=== PATIENT | female | born 1955 | race Caucasian/White ===

== ENCOUNTER 2020-05-30 11:01 | Outpatient (CLI) | payer MEDICARE, SELFPAY | END 2020-05-30 11:02 | disposition home or self-care (01) | LOC: ANHCOVIDVC 11:02 | PROVIDERS: PCP Internal Medicine Hematology & Oncology | DX: Z23 Encounter for immunization (principal) | CPT/HCPCS: 0001A; 91300 ==

== ENCOUNTER → 2020-06-14 02:30 | Outpatient (CLI) | payer MEDICARE, SELFPAY ==
[2020-06-14 20:22] LABS: SARS-CoV-2 RNA PCR Negative
== END ==
PROVIDERS: PCP Internal Medicine Hematology & Oncology; Visit Provider Surgery
DX: Z01.812 Encounter for preprocedural laboratory examination (principal); Z20.822 Contact with and (suspected) exposure to COVID-19
CPT/HCPCS: C9803; U0003; U0005

== ENCOUNTER 2020-06-18 00:51 | Day surgery (SDC) | payer MEDICARE, SELFPAY ==
[2020-06-12 15:32] VITALS: BMI 37.1
--- NOTE | 2020-06-18 11:28 | PM.HPGS ---
History of Present Illness History of Present Illness Consent: Risks, benefits, and alternatives of removal of a port have been discussed and questions answered. Patient agrees to proceed with procedure. Chief complaint: follicular lymphoma Narrative: Leelee Ulrich is a 64 year old female with a history of stage IIIA follicular lymphoma which was 1st noted in January of 2018. She received treatment with Rituxan for 6 months and has been in remission. She recently was seen at Dr. Mirna irvin. Oncology office and after thorough discussion and no further lymphadenopathy is been approved for her to have her Port-A-Cath removed as no further treatment is contemplated at this time. Review of Systems Constitutional: Constitutional: Reports no additional constitutional complaints, Reports fatigue and Denies malaise Eyes: Eyes: Denies change in vision and Denies loss of vision ENT: Reports Normal hearing present, Denies change in voice, Denies dizziness, Denies hoarseness and Denies sore throat Cardiovascular: Cardiovascular: Denies chest pain, Denies leg edema and Denies dyspnea Respiratory: Respiratory: Denies cough, Denies dyspnea and Denies wheezing Comments: History of previous smoker. Has now quit. Gastrointestinal: Gastrointestinal: Denies hematochezia, Denies change in bowel habits and Denies heartburn Genitourinary: Genitourinary: Denies urinary frequency and Denies urinary incontinence Neurologic: Reports Normal hearing present, Denies confusion, Denies dizziness, Denies loss of vision, Denies memory loss and Denies seizure-like activity Psychiatric: Psychiatric: Denies confusion, Denies depression and Denies memory loss Endocrine: Endocrine: Denies cold intolerance and Reports fatigue Hematologic/Lymphatic: Hematologic/Lymphatic: Denies easy bleeding and Denies easy bruising Comments: History of follicular lymphoma 1st discovered January 2018 with enlarged lymph nodes of the head neck. Allergic/Immunologic: Allergic/Immunologic: Denies wheezing PMFSH Past Medical History Medical History (Updated 06/18/20 @ 11:32 by Kermit Dial MD) Follicular lymphoma grade 3a (~2018) Port-A-Cath in place (Unknown) Social History Social History Smoking packs per day: 1 Smoking cigarettes per day: 20.0 Years smoked: 20 Smoking pack-years: 20.00 Smoking status: Former smoker Tobacco type: cigarettes Additional smoking assessment comments: QUIT 2018 Alcohol intake: never Substance use: never Substance use type: does not use Living arrangements: alone Spiritual care concerns: Yes (NO BLOOD PRODUCTS) Meds Home Medications and Allergies Home Medications Medication Instructions Recorded Confirmed Type No Home Medications 06/12/20 06/18/20 History Allergies Allergy/AdvReac Type Severity Reaction Status Date / Time No Known Allergies Allergy Unverified 06/18/20 13:44 Exam Const: General: cooperative, healthy appearing, no acute distress, well developed and alert; No confusion Nutritional Appearance: well nourished Orientation/consciousness: patient oriented x3 and No confusion Limitations: no limitations HENMT: Head: normal to inspection, normocephalic and atraumatic Ears: hearing grossly normal bilaterally General nose exam: Normal external nose present Face and sinus: no edema Mouth: Yes Normal oral and palatal mucosa present and Yes lip normal Throat: posterior oropharynx normal Eyes: General: appearance normal, both eyes and all related structures Sclera: sclerae normal Pupils: Equal, round and reactive pupils present EOM: EOMs intact bilaterally Neck: Neck: normal visual inspection, no lymphadenopathy, trachea midline and supple Chest: Other: There is a small scar on the anterior right chest with underlying port palpable. Resp: Effort & Inspection: normal respiratory effort and able to speak in comp
[2020-06-18 13:15] VITALS: BP 142/97; PULSE 60; RESP 16; TEMP 36.6; O2SAT 100
[2020-06-18 13:29] VITALS: BMI 36.9
--- NOTE | 2020-06-18 13:53 | WPDHPUPDATE1 ---
History and Physical Update Update Date/Time: 06/18/20 13:53 History and Physical has been reviewed, including an updated exam of the patient. There are NO changes in the patient's condition. Risks, benefits, and alternatives removal of Port-A-Cath have been discussed and questions answered. Patient agrees to proceed with procedure.
[2020-06-18 14:28] VITALS: BP 142/86; PULSE 60; RESP 20; O2SAT 97
[2020-06-18 14:42] VITALS: BP 184/89; PULSE 72; RESP 20; O2SAT 99
[2020-06-18 14:52] VITALS: BP 117/65; PULSE 80; RESP 20; O2SAT 99
[2020-06-18 15:00] VITALS: BP 149/77; O2SAT 99
--- NOTE | 2020-06-18 15:07 | P.OP_ITS ---
Procedure Note - Detailed Date of procedure: 06/19/20 Pre-op diagnosis: follicular lymphoma Indwelling Port-A-Cath Post-op diagnosis: same Procedure performed: Removal of Port-A-Cath Description of procedure: Prior to the procedure the patient was seen in the holding area and the area of proposed surgery was marked. All questions were answered and the patient wished to proceed with removal of the Port-A-Cath. The patient was brought to the operating room and placed supine. The entire right neck, chest, and shoulder were prepped with chlorhexidine. The area was draped off. Time-out was performed confirming patient and site of surgery. Following this a 15 blade knife was used to make incision directly on the scar from the previous port placement. This was done after infiltrating local anesthetic into the area of and inferior to the scar and into the area of the pocket containing the port to some degree using 2% xylocaine with epinephrine. Following this we carefully dissected down to the junction of the port and catheter. Bovie cautery with needle-tip was used to carefully incise the capsule around the port and free up the scar tissue around the junction of the port and catheter. Two black silk sutures that were holding the port to the underlying fascia were carefully excised with a 15 blade knife and mosquito hemostats. Following this the port was brought up and out of the pocket. Then watching the patient's respirations I carefully removed the catheter in one smooth pull while applying pressure in the lower right neck area at the catheter exit site as the patient was breathing out. Pressure was held for 1 minute. I used Bovie cautery on some the subcutaneous tissues as we waited for good clotting. Again hemostasis was checked in the wound using Bovie cautery for superficial hemostasis in the subcutaneous tissues. Following this closure was obtained with 2 layers. I used buried subcutaneous sutures of 3-0 Vicryl in the subcutaneous layer followed by a running subcuticular closure of 4-0 Monocryl on the skin. Patient tolerated the procedure well. Estimated blood loss was 3 cc Sponge, needle, and instrument counts were correct at the end the procedure and patient was taken to the outpatient recovery area in good condition. Anesthesia: local ( 2% xylocaine with epinephrine) Surgeon: Kermit Dial MD Manager Division: none Drains: No Packing: No Pathology: none sent Complications: No immediate complications Condition: stable Disposition: other ( outpatient recovery area) Findings: unremarkable port and catheter that were intact.
[2020-06-18 15:10] VITALS: BP 150/80; PULSE 66; RESP 14; O2SAT 99
== END 2020-06-18 15:30 | disposition home or self-care (01) ==
PROVIDERS: PCP Family Medicine; Visit Provider Surgery
PROC: (CPT 36589; principal; 2020-06-18 15:00)
DX: Z45.2 Encounter for adjustment and management of vascular access device (principal); Z85.72 Personal history of non-Hodgkin lymphomas; Z92.21 Personal history of antineoplastic chemotherapy; Z87.891 Personal history of nicotine dependence
CPT/HCPCS: 36590

== ENCOUNTER 2020-06-20 10:59 | Outpatient (CLI) | payer MEDICARE, SELFPAY | END 2020-06-20 11:00 | disposition home or self-care (01) | LOC: ANHCOVIDVC 10:59 | PROVIDERS: PCP Family Medicine | DX: Z23 Encounter for immunization (principal) | CPT/HCPCS: 0002A; 91300 ==

== ENCOUNTER 2022-12-20 11:45 | Outpatient (CLI) | payer MEDICARE, SELFPAY ==
[2022-12-20 11:59] LABS: Basophils Percent Auto 1.1 % (0.2-1.2); Eosinophils Percent Auto 1.5 % (0-4.4); Hematocrit 40.3 % (37.0-47.0); Hemoglobin 13.9 g/dL (12.0-15.0); Immature Granulocyte Absolute 0.01 K/mm3 (0.00-0.031); Immature Granulocyte Percent A 0.4 % (0-0.5); Lymphocytes Absolute Auto 0.83 K/mm3 (0.9-3.2); Lymphocytes Percent Auto 30.2 % (18.3-44.2); Mean Corpuscular HGB Conc 34.5 g/dl (32-36); Mean Corpuscular Hemoglobin 31.7 pg (26-34); Mean Corpuscular Volume 91.8 fl (80-100); Mean Platelet Volume 10.3 fl (7.4-10.4); Monocytes Absolute Auto 0.1 K/mm3 (0.1-0.6); Monocytes Percent Auto 4.7 % (2.6-8.5); Neutrophils Absolute Auto 1.7 K/mm3 (1.3-6.7); Neutrophils Percent Auto 62.1 % (45.5-73.1); Platelet Count Result 148 k/mm3 (150-375); Red Blood Count 4.39 M/mm3 (4.2-5.4); Red Cell Distribution Width 11.6 % (11.5-14.5); White Blood Count 2.8 K/mm3 (4.5-10.0)
[2022-12-20 13:25] LABS: Alanine Aminotransferase 21 U/L (6-35); Albumin Level 4.3 g/dL (3.5-5.1); Alkaline Phosphatase 42 U/L (38-126); Anion Gap 6 mmol/L (8-16); Aspartate Amino Transferase 23 U/L (14-36); Bilirubin,Total 0.7 mg/dL (0.2-1.3); Blood Urea Nitrogen 14 mg/dL (7-17); Carbon Dioxide 25 mmol/L (22-30); Chloride 107 mmol/L (98-107); Estimated Glomerular Filt Rate > 60; Glucose 108 mg/dL (65-110); Lactate Dehydrogenase 213 U/L (120-246); Potassium 3.9 mmol/L (3.4-5.0); Sodium 138 mmol/L (137-145)
== END 2022-12-20 11:46 | disposition home or self-care (01) ==
LOC: ANHLAB 11:47
PROVIDERS: PCP Family Medicine; Visit Provider Internal Medicine Hematology & Oncology
DX: C82.98 Follicular lymphoma, unspecified, lymph nodes of multiple sites (principal)
CPT/HCPCS: 36415; 80053; 83615; 85025

== ENCOUNTER 2024-08-22 11:18 | Outpatient (CLI) | payer MEDICARE, SELFPAY ==
--- OUTSIDE RECORDS SUMMARY | 2024-08-22 11:22 | XMS_ITS | Clinical Summary ---
Author Organization [facility] Address [address] [place] [address] Care Team Providers Care Lamp Mechanic Name Role Phone Rober Farnsworth MD Primary Care Provider Allergies No known active allergies Medications No known medications Active Problems Problem Noted Date Diagnosed Date Follicular lymphoma 01/25/2018 Resolved Problems Problem Noted Date Diagnosed Date Resolved Date Lymphadenopathy 01/11/2018 01/25/2018 Encounters Date Type Department Care Team Description 08/08/2024 External Device Data STL ABSTRACTION Provider, Abstract 08/07/2024 External Device Data STL ABSTRACTION Provider, Abstract 06/19/2024 External Device Data STL ABSTRACTION Provider, Abstract from Last 3 Months Family History Medical History Relation Name Comments Healthy Brother Diabetes Father Heart Disease Father Heart Failure Father Cancer Mother Relation Name Status Comments Brother Alive Father Mother Social History Tobacco Use Types Packs/Day Years Used Date Smoking Tobacco: Former Cigarettes 0.5 20 1 - 01/18/2018 Smokeless Tobacco: Never Tobacco Cessation:Counseling Given: Not Answered Comments:started smoking in -86 quit for 15 yrs now current moker Alcohol Use Standard Drinks/Week Comments Yes 0 (1 standard drink = 0.6 oz pur e alcohol) Comments No Sex and Gender Information Value Date Recorded Sex Assigned at Female 02/24/2024 11:35 AM CORPORATE TRAVEL MANAGER Legal Sex Female 10:40 AM CDT Gender Identity Female 02/24/2024 11:35 AM CORPORATE TRAVEL MANAGER Sexual Orientation Straight 02/24/2024 11 :35 AM CORPORATE TRAVEL MANAGER Last Filed Vital Signs Vital Sign Reading Time Taken Comments Blood Pressure 113/63 08/29/2023 11:34 AM CDT Pulse 67 08/29/2023 11:34 AM CDT Temperature 36.1 C (96.9 F) 08/29/2023 11:34 AM CDT Respiratory Rate 14 08/29/2023 11:34 AM CDT Oxygen Saturation 98% 08/29/2023 11:34 AM CDT Inhaled Oxygen Concentration - - Weight 85.9 kg (189 lb 6.4 oz) 08/29/2023 11:34 AM CDT Height 152.4 cm (5') 08/24/2021 9:58 AM CDT Body Mass Index 36.99 08/24/2021 9:58 AM CDT Plan of Treatment Upcoming Encounters Date Type Department Care Team (Late st Contact Info) Description 08/29/2024 10:00 AM CDT Office Visit [facility] Oncology and Hematology - [place] [address] [facility] [address] [place] [address] Joe Snow MD [address] [facility] [address] [place] [address] Health Maintenance Due Date Last Done Comments Pre-Diabetes and Diabetes Screening 1955 DTAP/TDAP/TD VACCINES (1 - Tdap) 1972 PNEUMOCOCCAL VACCINE 50+ YEA RS (1 of 2 - PCV) 1972 ZOSTER VACCINE (1 of 2) 1972 COLORECTAL SCREENING 1998 Colorectal Cancer Screening 1998 FIT-DNA Q 3 years 1998 FIT/FOBT Q 1 year 1998 Flex Sig/CT Colonography Q 5 years 1998 RSV VACCINE (60+ or ) (1 - Risk 60-74 years 1-dose series) 2013 BREAST CANCER SCREENING 11/07/2018 11/07/2017, 07/31 OSTEOPOROSIS SCREENING 08/01/2019 07/31/2014 INFLUENZA VACCINE (#1) 2023 Medicare Advantage ([place]) Prev entative Visit/Annual Wellness Visit 03/21/2024 Insurance [employer] CHOICE PPO MCR Care Teams Lamp Mechanic Relationship Specialty Start Date End Date Rober Farnsworth MD [address] [place] [address] PCP - General Family Practice 01/11/18
[2024-08-22 11:33] LABS: Basophils Percent Auto 1.4 % (0.2-1.2); Hematocrit 39.2 % (37.0-47.0); Hemoglobin 13.2 g/dL (12.0-15.0); Immature Granulocyte Absolute 0.01 K/mm3 (0.00-0.031); Immature Granulocyte Percent A 0.3 % (0-0.5); Lymphocytes Absolute Auto 1.11 K/mm3 (0.9-3.2); Lymphocytes Percent Auto 37.6 % (18.3-44.2); Mean Corpuscular HGB Conc 33.7 g/dl (32-36); Mean Corpuscular Hemoglobin 31.4 pg (26-34); Mean Corpuscular Volume 93.1 fl (80-100); Mean Platelet Volume 10.2 fl (7.4-10.4); Monocytes Absolute Auto 0.2 K/mm3 (0.1-0.6); Monocytes Percent Auto 6.1 % (2.6-8.5); Neutrophils Absolute Auto 1.6 K/mm3 (1.3-6.7); Neutrophils Percent Auto 53.6 % (45.5-73.1); Platelet Count Result 137 k/mm3 (150-375); Red Blood Count 4.21 M/mm3 (4.2-5.4)
[2024-08-22 12:05] LABS: Alanine Aminotransferase 19 U/L (6-35); Albumin Level 4.1 g/dL (3.5-5.1); Alkaline Phosphatase 38 U/L (38-126); Anion Gap 6 mmol/L (4-12); Aspartate Amino Transferase 29 U/L (14-36); Bilirubin,Total 0.5 mg/dL (0.2-1.3); Blood Urea Nitrogen 16 mg/dL (7-17); Calcium 9.3 mg/dL (8.4-10.2); Carbon Dioxide 27 mmol/L (22-30); Chloride 106 mmol/L (98-107); Estimated Glomerular Filt Rate > 60; Glucose 94 mg/dL (65-110); Potassium 4.3 mmol/L (3.4-5.0); Sodium 139 mmol/L (137-145); Total Protein 6.7 g/dL (6.3-8.2)
== END 2024-08-22 11:19 | disposition home or self-care (01) ==
PROVIDERS: PCP Family Medicine; Visit Provider Internal Medicine Hematology & Oncology
DX: C82.98 Follicular lymphoma, unspecified, lymph nodes of multiple sites (principal)
CPT/HCPCS: 36415; 80053; 85025

== ENCOUNTER 2024-10-05 10:14 | Outpatient (CLI) | payer MEDICARE, SELFPAY ==
--- OUTSIDE RECORDS SUMMARY | 2024-10-05 10:18 | XMS_ITS | Clinical Summary ---
Author Organization [facility] Address [address] [place] [address] Care Team Providers Care Senior Publications Specialist Name Role Phone Rober Farnsworth MD Primary Care Provider Allergies No known active allergies Medications No known medications Active Problems Problem Noted Date Diagnosed Date Follicular lymphoma 01/25/2018 Resolved Problems Problem Noted Date Diagnosed Date Resolved Date Lymphadenopathy 01/11/2018 01/25/2018 Encounters Date Type Department Care Team Description 10/02/2024 External Device Data STL ABSTRACTION Provider, Abstract 09/11/2024 External Device Data STL ABSTRACTION Provider, Abstract 08/29/2024 10:00 AM CDT Office Visit [facility] Oncology and Hematology - [place] [address] [place] [id number] Joe Snow MD Follicular lymphoma of lymph nodes of multiple regions, unspecified follicular lymphoma type (CMS/HCC) (Primary Dx) 08/22/2024 Orders Only [facility] Oncology and Hematology [facility] [address] [place] [address] Joe Snow MD 08/08/2024 External Device Data STL ABSTRACTION Provider, [...] Sex Assigned at Female 02/24/2024 11:35 AM OPTICAL WORKER Legal Sex Female 10:40 AM CDT Gender Identity Female 02/24/2024 11:35 AM OPTICAL WORKER Sexual Orientation Straight 02/24/2024 11 :35 AM OPTICAL WORKER Last Filed Vital Signs Vital Sign Reading Time Taken Comments Blood Pressure 102/73 08/29/2024 9:47 AM CDT Pulse 73 08/29/2024 9:47 AM CDT Temperature 36.2 C (97.2 F) 08/29/2024 9:47 AM CDT Respiratory Rate 15 08/29/2024 9:47 AM CDT Oxygen Saturation 96% 08/29/2024 9:47 AM CDT Inhaled Oxygen Concentration - - Weight 86.7 kg (191 lb 3.2 oz) 08/29/2024 9:47 A M CDT Height 152.4 cm (5') 08/24/2021 9:58 AM CDT Body Mass Index 37.34 08/24/2021 9:58 AM CDT Plan of Treatment Upcoming Encounters Date Type Department Care Team (Late st Contact Info) Description 08/30/2025 10:00 AM CDT Office Visit [facility] Oncology and Hematology - [place] [address] [facility] [address] [place] [address] Joe Snow MD [address] [facility] [address] [place] [address] Health Maintenance Due Date Last Done Comments Pre-Diabetes and Diabetes Screening 1955 DTAP/TDAP/TD VACCINES (1 - Tdap) 1972 PNEUMOCOCCAL VACCINE 50+ YEA RS (1 of 2 - PCV) 1972 ZOSTER VACCINE (1 of 2) 1972 COLORECTAL SCREENING 1998 Colorectal Cancer Screening 1998 FIT-DNA Q 3 years 1998 FIT/FOBT Q 1 year 1998 Flex Sig/CT Colonography Q 5 years 1998 BREAST CANCER SCREENING 11/07/2018 11/07/2017, 07/31 OSTEOPOROSIS SCREENING 08/01/2019 07/31/2014 INFLUENZA VACCINE (#1) 2024 RSV VACCINE (60+ or ) (1 - 1-dose 75+ series) 2028 Procedures Procedure Name Priority Date/Time Associated Diagnosis Comments COMPREHENSIVE METABOLIC PANEL Routine 08/22/2024 3:31 PM CDT from Last 3 Months Results * COMPREHENSIVE METABOLIC PANEL (08/22/2024 3:31 PM CDT) Blood us Joe Snow MD CHEMISTRY ORDERABLES Final Resu lt from Last 3 Months Insurance [employer] PPO MCR Care Teams Senior Publications Specialist Relationship Specialty Start Date End Date Rober Farnsworth MD [address] [place] [address] PCP - General Family Practice 01/11/18
[2024-10-05 11:19] LABS: Cholesterol 218 mg/dL (0-200); HDL Direct 70 mg/dL; Triglycerides 100 mg/dL (<150)
[2024-10-05 11:24] LABS: Hemoglobin A1C 5.1 % (<5.7)
[2024-10-05 12:14] LABS: Vitamin B12 228.0 pg/mL (239-931)
[2024-10-05 12:30] LABS: Thyroid Stimulating Hormone Reflex 5.300 uIU/mL (0.465-4.68)
[2024-10-05 13:43] LABS: Free T4 Free Thyroxine Reflex 1.11 ng/dL (0.78-2.19)
[2024-10-05 14:52] LABS: Total Triiodothyronine (T3) 1.09 NG/ML (0.82-1.58)
== END 2024-10-05 10:15 | disposition home or self-care (01) ==
LOC: ANHLAB 10:15
PROVIDERS: PCP Family Medicine; Visit Provider Family Medicine
DX: E53.8 Deficiency of other specified B group vitamins (principal); E78.5 Hyperlipidemia, unspecified; D61.818 Other pancytopenia; E55.9 Vitamin D deficiency, unspecified; R73.9 Hyperglycemia, unspecified
CPT/HCPCS: 36415; 80061; 82306; 82607; 83036; 84439; 84443; 84480

== ENCOUNTER 2024-10-10 12:19 | Outpatient (CLI) | payer MEDICARE, SELFPAY ==
--- NOTE | ~2024-10-10 | CT_ITS ---
EXAMINATION: CT lung screening DATE: 10/10/2024 12:31 INDICATION: F17.210 - Nicotine dependence, cigarettes, uncomplicated TECHNIQUE: Computed tomography (CT) of the chest was performed without intravenous contrast. Addition al 3D reconstructions utilizing coronal maximum intensity projection (MIP) were performed. Iterative reconstruction technique was employed. The dose-length product was 144.95 mGy-cm. COMPARISON: 08/03/2018 FINDINGS: Mild discoid atelectasis in the lingula and at the junction of the right upper and middle lobes. No i nterval change in a couple 3 mm and 2 mm nodule in the left upper lobe. Small calcified right upper l obe nodule consistent with old granulomatous disease. No pneumonia, pulmonary edema or pleural effusi on. Small fat-containing Bochdalek hernia along the posterior left hemidiaphragm. Heart size is camilla l. No pericardial effusion. Thoracic aorta is normal in caliber. No pathologically enlarged thoracic lymphadenopathy. Visualized upper abdomen is unremarkable. Moderate to severe thoracic spondylosis. IMPRESSION: 1. . Lung-RADS category 2: Benign appearance or behavior. Continue annual screening with noncontrast low-dose chest CT in 12 months. Reviewed, dictated and finalized at location A. IMPRESSION: 1. . Lung-RADS category 2: Benign appearance or behavior. Continue annual scree marla with noncontrast low-dose chest CT in 12 months.
== END 2024-10-10 12:20 | disposition home or self-care (01) ==
LOC: MICIMG 12:19
PROVIDERS: PCP Family Medicine; Visit Provider Family Medicine
DX: Z12.2 Encounter for screening for malignant neoplasm of respiratory organs (principal); Z87.891 Personal history of nicotine dependence
CPT/HCPCS: 71271

== ENCOUNTER 2024-10-22 12:05 | Outpatient (CLI) | payer MEDICARE, SELFPAY ==
--- NOTE | ~2024-10-22 | DEXA_ITS ---
Bone Density Report Name: AUGIE RICCI Age: 69 Sex: Female Ethnicity: White Date of : 1955 Indication: postmenopausal; screening for osteoporosis; cancer; seizure disorder; Referring Provider: DREW SPARKS Study: Bone densitometry was performed. Exam Date: October 22, 2024 Accession number: [id number] Bone Density: Region BMD T-score Z-score Classification AP Spine(L1-L4) 1.044 0.0 2.1 Normal Femoral Neck (Left) 0.588 -2.3 -0.5 Osteopenia Total Hip (Left) 0.901 -0.3 1.2 Normal Femoral Neck (Right) 0.691 -1.4 0.4 Osteopenia Total Hip (Right) 0.904 -0.3 1.2 Normal Total Hip Mean 0.902 -0.3 1.2 Normal World Health Organization criteria for BMD impression classify patients as: Normal (T-score at or above -1.0), Osteopenia (T-score between -1.0 and -2.5), or Osteoporosis (T-score at or below -2.5). 10-year Fracture Risk(1): Major Osteoporotic Fracture 12% Hip Fracture 2.5% Reported Risk Factors: [place] (), Neck BMD=0.588, BMI=38.4 (1) FRAX(R) Version 3.08. Fracture probability calculated for an untreated patient. Fracture probability may be lower if the patient has received treatment. Clinical Information Provided by Patient: Has used the following medications: Vitamin D Has the following medical conditions: Any Seizure Disorders, Cancer Patient maximum height was 60.0 Menopause Age: 46 Drinks caffeinated beverages Onset of menses at age 11 Number of children 2 Impression: The patient has low bone mass, based on the Left Femoral Neck T-score. The patient has an estimated ten-year risk of hip fracture of 2.5% and an estimated ten-year risk of major fracture of 12%, based on the WHO FRAX algorithm. Discussion: BONE DENSITY IS LOW AT ONE OR MORE SKELETAL SITES. This patient's lowest T-score is low at one or more skeletal sites. It meets the World Health Organization's (WHO) criteria for ?low bone mass? (T-score between -1.0 and -2.5). The patient's 10-year risk of fracture as calculated by FRAX is less than the threshold where pharmacological therapy is recommended by the National Osteoporosis Foundation (NOF). However, all treatment decisions require clinical judgment and consideration of individual patient factors, including patient preferences, comorbidities, previous drug use, risk factors not captured in the FRAX model (e.g., frailty, falls, vitamin D deficiency, increased bone turnover, interval significant decline in bone density) and possible under or overestimation of fracture risk by FRAX. The patient should follow a healthful lifestyle (good nutrition with adequate calcium and vitamin D, and appropriate weight-bearing exercise). Follow-Up: Consider repeating this study in 2 to 3 years to reassess this patient's status, or sooner if there is some new clinical indication. Reported by: DEMETRIUS on 10/22/2024 12:44:00 PM. Reviewed, dictated and finalized at location A.
--- OUTSIDE RECORDS SUMMARY | 2024-10-22 12:10 | XMS_ITS | Clinical Summary ---
Author Organization [facility] Address [address] [place] [address] Care Team Providers Care Survival Specialist Name Role Phone oRber Farnsworth MD Primary Care Provider Allergies No known active allergies Medications No known medications Active Problems Problem Noted Date Diagnosed Date Follicular lymphoma 01/25/2018 Resolved Problems Problem Noted Date Diagnosed Date Resolved Date Lymphadenopathy 01/11/2018 01/25/2018 Encounters Date Type Department Care Team Description 10/03/2024 External Device Data STL ABSTRACTION Provider, Abstract 10/02/2024 External Device Data STL ABSTRACTION Provider, Abstract 09/11/2024 External Device Data STL ABSTRACTION Provider, Abstract 08/29/2024 10:00 AM CDT Office Visit [facility] Oncology and Hematology [facility] [address] [place] [address] Joe Snow MD Follicular lymphoma of lymph nodes of multiple regions, unspecified follicular lymphoma type (CMS/HCC) (Primary Dx) 08/22/2024 Orders Only [facility] Oncology and [facility] [address] [place] [address] Joe Snow MD 08/08/2024 External Device Data [...] Cessation:Counseling Given: Not Answered Comments:started smoking in [age] quit for 15 yrs now current moker Alcohol Use Standard Drinks/Week Comments Yes 0 (1 standard drink = 0.6 oz pur e alcohol) Comments No Sex and Gender Information Value Date Recorded Sex Assigned at Female 02/24/2024 11:35 AM WOOD CARVER HAND Legal Sex Female 10:40 AM CDT Gender Identity Female 02/24/2024 11:35 AM WOOD CARVER HAND Sexual Orientation Straight 02/24/2024 11 :35 AM WOOD CARVER HAND Last Filed Vital Signs Vital Sign Reading [...] Description 08/30/2025 10:00 AM CDT Office Visit [facility] Oncology and Hematology - [place] [address] [facility] [address] [place] [address] Joe Snow MD [address] [facility] [address] [place] [address] Health Maintenance Due Date Last Done Comments DTAP/TDAP/TD VACCINES (1 - Tdap) 1972 PNEUMOCOCCAL [...] Months Insurance [employer] PPO MCR Care Teams Survival Specialist Relationship Specialty Start Date End Date Rober Farnsworth MD [address] [place] [address] PCP - General Family Practice 01/11/18
== END 2024-10-22 12:06 | disposition home or self-care (01) ==
LOC: ANHIMG 12:08
PROVIDERS: PCP Family Medicine; Visit Provider Family Medicine
DX: M85.89 Other specified disorders of bone density and structure, multiple sites (principal); Z78.0 Asymptomatic menopausal state
CPT/HCPCS: 77080

== ENCOUNTER 2025-03-08 13:30 | Outpatient (CLI) | payer MEDICARE, SELFPAY ==
--- NOTE | ~2025-03-08 | MM_ITS ---
EXAMINATION: MM screening gregory BI w miya HISTORY: Screening TECHNIQUE: Craniocaudal and mediolateral oblique 3-D tomosynthesis images were obtained and synthetic 2-D images were generated. CAD analysis was submitted and interpreted. COMPARISON: No prior mammogram is available for comparison at this institution. BREAST PARENCHYMAL COMPOSITION: Not Dense: The breasts are almost entirely fatty. FINDINGS: There is no evidence of suspicious mass, calcification, or architectural distortion to suggest malignancy in either breast. There has been no suspicious interval change. IMPRESSION: 1. No mammographic evidence of malignancy. 2. Recommend routine screening mammography in one year. BI-RADS Category 1: Negative Reviewed, dictated and finalized at location O. RANCE LOSS ASSESSOR
--- OUTSIDE RECORDS SUMMARY | 2025-03-08 13:35 | XMS_ITS | Clinical Summary ---
Author Organization [facility] Address [address] [facility] [place] [address] Care Team Providers Care Carder Blankets Name Role Phone Rober Farnsworth MD Primary Care Provider Allergies No known active allergies Medications No known medications Active Problems Problem Noted Date Diagnosed Date Follicular lymphoma 01/25/2018 Resolved Problems Problem Noted Date Diagnosed Date Resolved Date Lymphadenopathy 01/11/2018 01/25/2018 Encounters Date Type Department Care Team Description 02/05/2025 External Device Data STL ABSTRACTION Provider, Abstract [...] Sex Assigned at Female 02/24/2024 11:35 AM MONORAIL CHARGER OPERATOR Legal Sex Female 10:40 AM CDT Gender Identity Female 02/24/2024 11:35 AM MONORAIL CHARGER OPERATOR Sexual Orientation Straight 02/24/2024 11 :35 AM MONORAIL CHARGER OPERATOR Last Filed Vital Signs Vital Sign Reading [...] Description 08/30/2025 10:00 AM CDT Office Visit [facility] Oncology and Hematology - [place] [address] [facility] [address] [place] [address] Joe Snow MD [address] [facility] [address] [place] [address] Health Maintenance Due Date Last [...] ) (1 - 1-dose 75+ series) 2028 Insurance [employer] PPO MCR Care Teams Carder Blankets Relationship Specialty Start Date End Date Rober Farnsworth MD [address] [place] [phone] PCP - General Family Practice 01/11/18
== END 2025-03-08 13:31 | disposition home or self-care (01) ==
PROVIDERS: PCP Family Medicine; Visit Provider Family Medicine
DX: Z12.31 Encounter for screening mammogram for malignant neoplasm of breast (principal)
CPT/HCPCS: 77063; 77067